=== PATIENT | female | born 1975 | race Caucasian/White ===

== ENCOUNTER 2017-02-04 16:45 | Emergency (ER) | payer SELFPAY ==
[~2017-02-04] VITALS: Wt 90.6 kg
[~2017-02-04 16:45] MED LIST: HYDR28CR36; SULF-182; [UNRECOGNIZED DRUG - CODE]
== END 2017-02-04 21:15 | disposition left against medical advice (07) ==
LOC: FTE 16:45 → E/R 21:15
DX: Z53.21 Procedure and treatment not carried out due to patient leaving prior to being seen by health care provider (principal)